=== PATIENT | female | born 1980 | race Caucasian/White ===

== ENCOUNTER → 2021-11-16 01:15 | Outpatient (CLI) | payer BC, SELFPAY ==
--- NOTE | 2021-11-16 | DI.MRI_ITS ---
Exam(s) MR LUMBAR SPINE WO EXAM: MR LUMBAR SPINE WO CLINICAL HISTORY: LUMBOSACRAL RADICULOPATHY,M54.17,H/O L4-5 MICRODISECTOMY. TECHNIQUE: Multiplanar multisequence MRI of the Lumbar spine was performed. COMPARISON: Prior outside MR LS SPINE W/WO CONTRAST from 05/13/2015 . plain films of 10/08/2021 rev iewed. There is sacralization of the L5 segment/transitional anatomy and rudimentary 12th ribs. FINDINGS: Five lumbar vertebrae are presumed. Conus medullaris is at normal level. There is no evidence of conus mass nor subjacent clumping of in trathecal nerve roots to suggest arachnoiditis. The distal thecal sac appears unremarkable.Again not ed are small bilateral Tarlov intra sacral cysts, unchanged. Bones:There are no fractures nor ominous osseous lesions in the lumbar vertebral bodies and visualize d sacrum. However, there are now Modic type 1 sub endplate marrow edema findings at L4-5. With respect to the individual levels... T12-L1: Unremarkable L1-2: Normal disc height and signal. No disc herniation nor central canal stenosis.No foraminal steno sis L2-3: Normal disc height. No disc herniation nor central canal stenosis.No foraminal stenosis.No face t arthropathy. L3-4: Normal disc height. No disc herniation or central canal stenosis.No foraminal stenosis.No face t arthropathy. L4-5: There is evidence of partial left laminectomy. There is Modic-type 1 sub endplate marrow edema changes on the right side of this disc space. There is mild asymmetric narrowing also of the right side of this disc space. There is some annular bulging which is predominantly central.. There is no large disc herniation. There is no neural spinal canal stenosis. Mild foraminal stenosis is noted on the right side, this related to some disc height loss. However this is only mild stenosis of the exiting right neural foramen.. There is no foraminal stenosis on the left side. No prominent facet arthropathy nor ligamentum flavum hypertrophy. L5-S1: Unremarkable Soft tissues: paraspinal soft tissues appear unremarkable. IMPRESSION: 1. L4-5 findings as described above, but without an obvious new prominent disc herniation. Also no c entral canal stenosis nor prominent foraminal stenosis at this level which has undergone prior surger y. There is mild foraminal stenosis on the right side at this level due to slight disc height loss o n the right side where there also Modic type 1 sub endplate marrow edema changes. There is no abnorm al fluid collection at this level. 2. Please note that this patient has transitional lumbar anatomy, including sacralization of the L5 s egment. Therefore if this patient is ever to be a surgical candidate then close review of the plain films and MRI together are recommended so as to avoid operating on the wrong level. DATA REPOSITORY:
== END ==
PROVIDERS: PCP Family Medicine; Visit Provider Physician Assistant
DX: M54.17 Radiculopathy, lumbosacral region (principal); Z98.890 Other specified postprocedural states; M51.87 Other intervertebral disc disorders, lumbosacral region
CPT/HCPCS: 72148

== ENCOUNTER 2022-10-12 09:47 | Emergency (ER) | payer OTHER, SELFPAY ==
[2022-10-12] VITALS (8 sets, daily range): BP systolic 117–133; BP diastolic 49–86; PULSE 80–103; RESP 14–20; TEMP 36.4; O2SAT 98–100
--- NOTE | 2022-10-12 09:52 | NUR.NOTE ---
epi pen administered upon time of arrival by staff
--- NOTE | 2022-10-12 10:01 | W.ED.GENAD ---
Discharge Plan Disposition Patient Disposition: Home Discharge Details Clinical Impression: Numbness of lip Primary Care Provider: Lucie Morel ED Provider: Contreras Rouse Home Meds and New Rx's Prescriptions: Continued dextroamphetamine-amphetamine [Adderall] 20 mg tablet 20 mg PO DAILY clonazepam 0.5 mg tablet 0.5 mg PO QHS Rx Instructions: administer 30 minutes before bedtime cyclobenzaprine 5 mg tablet 5 mg PO TID fluoxetine 20 mg capsule 20 mg PO DAILY fluticasone propionate 50 mcg/actuation spray,suspension 2 spray intranasal DAILY Rx Instructions: administer into each nostril folic acid 1 mg tablet 1 mg PO DAILY gabapentin 300 mg capsule 600 mg PO TID lamotrigine 100 mg tablet 200 mg PO DAILY meclizine 25 mg tablet 25 mg PO DAILY PRN methotrexate sodium 2.5 mg tablet 10 mg PO QWEEK fluoxetine [Prozac] 20 mg capsule 20 mg PO DAILY norgestimate-ethinyl estradiol [Lmc-Yc-Zgnyykyx] 0.18/0.215/0.25 mg-25 mcg tablet 1 tab PO DAILY Discharge Instructions Additional Instructions: You are seen in the emergency department for the numbness in your lips. You did not have any swelling nor signs of anaphylaxis. Please follow-up with your primary care provider to discuss possibility of testing for allergies with an pattern marking supervisor. Medical Decision Making This is an overall well-appearing normothermic and not tachycardic 42-year-old female with numbness to her cheeks lips and tongue but no signs of anaphylaxis based on no airway involvement, no changes in breathing, nor any hypotension no nausea nor vomiting. Patient received an EpiPen from triage. Given concern for possible allergic reaction to latex I was planning on dosing the patient with dexamethasone however she noted history of steroid-induced psychosis so we will defer this at this point time. She has had no nausea nor vomiting to suggest benefit from laboratory evaluation. No chest pain to suggest ACS. She has not had black nor bloody stools so we will defer CBC. No dysuria nor frequency to suggest benefit from urinalysis. We will observe the patient in the ED and reassess. 10:26 AM EUSEBIA Still reported that the patient's temperature was 97.6 ?F. Patient has had no progressive symptoms and denies any swelling in the back of her throat or in her lips. On reassessment her uvula was still visible and she had no symptoms. No swelling of her lips nor any wheezing. She had no hypoxia. I advised outpatient follow-up with her PMD to discuss possibility of assessment with an pattern marking supervisor to assess for allergies. I advised patient to return to the ED if she developed any shortness of breath difficulty breathing or swelling in the back for throat. HPI General Date/Time Provider Initiated Documentation: 10/12/22 10:01. HPI Narrative: This is a 42-year-old female arrived to the emergency department via private vehicle with concern for allergic reaction. Patient reports that at approximately 7 AM this morning she was blowing up latex balloons at work. She was concerned as she had tingling in her lips and cheeks. She took diphenhydramine. She reports that she has a prescription for an EpiPen but she has not filled this prescription. She said that she woke in usual state of health. She denies nausea vomiting or shortness of breath at the moment. She has a history of rheumatoid arthritis for which she takes methotrexate. She also takes dextroamphetamine for ADHD. She feels numbness in her lips cheeks and the roof of her mouth. She has not noticed any swelling in her cheeks nor in her mouth. She denies routine tobacco, she occasionally drinks ethanol, she denies illicits. She said no dysuria frequency nor any chest pain. Related Data Home Medications Medication Instructions Recorded Confirmed clonazepam 0.5 mg tablet 0.5 mg PO QHS 05/24/22 06/01/22 cyclobenzaprine 5 mg tablet 5 mg PO TID 05/24/22 06/01/22 dextroamphetamine-amphetamine 20 20 mg PO DAILY 05/24/22 06/01/22 mg tablet (Adderall) fluoxetine 20 mg capsule 20 mg PO DAILY 05/24/22 06/01/22 fluoxetine 20 mg capsule (Prozac) 20 mg PO DAILY 05/24/22 06/01/22 fluticasone propionate 50 2 spray intranasal DAILY 05/24/22 06/01/22 mcg/actuation nasal spray,suspension folic acid 1 mg tablet 1 mg PO DAILY 05/24/22 06/01/22 gabapentin 300 mg capsule 600 mg PO TID 05/24/22 06/01/22 lamotrigine 100 mg tablet 200 mg PO DAILY 05/24/22 06/01/22 meclizine 25 mg tablet 25 mg PO DAILY PRN 05/24/22 06/01/22 methotrexate sodium 2.5 mg tablet 10 mg PO QWEEK 05/24/22 06/01/22 norgestimate 0.18 mg/0.215 mg/0.25 1 tab PO DAILY 05/24/22 06/01/22 mg-ethinyl estradiol 25 mcg tablet ([id number]) Allergies Allergy/AdvReac Type Severity Reaction Status Date / Time insect venom Allergy Severe Anaphylaxis Unverified 06/01/22 11:04 General Stated Complaint: Allergic NEIDA: 3 PFSH All Active Problems (Updated 10/12/22 @ 10:26 by Contreras Rouse MD) Numbness of lip (Acute) Facial pressure (Acute) Medical History (Updated 10/12/22 @ 10:26 by Contreras Rouse MD) Allergic rhinitis Atopic dermatitis Back pain Bipolar disorder Chronic sinusitis Degeneration of lumbar intervertebral disc Depressive disorder Hemorrhoids Hypothyroidism Insomnia Intractable menstrual migraine Irritable bowel syndrome Migraine without aura Rheumatoid arthritis Sciatica Sleep disorder Undifferentiated spondyloarthropathy Surgical History (Updated 05/24/22 @ 15:25 by Abeba Rodgers RN) H/O colonoscopy H/O microdiscectomy History of adenoidectomy History of recent maxillofacial surgery History of surgery on arm Social History Smoking/Tobacco Use Status: Never Smoking risk assessment performed?: Yes Substance use type: does not use Do you feel safe at home: Yes Do you feel safe in your relationship?: Yes Exam Narrative Exam Narrative: General: Well-appearing in mild no significant or distress speaking in complete sentences. Head: Normocephalic, atraumatic. Eye: Pupils equal, round reactive to light. Extraocular eye movements intact. No conjunctival injection. No scleral icterus. Ear, nose, mouth, throat: Grossly normal inspection. Normal voice, handling secretions normally. No significant swelling in oropharynx. Uvula visible. No lip swelling. No stridor. Neck: Trachea midline. Cardiovascular: Well-perfused distal extremities. Regular rate and rhythm. Respiratory: Nonlabored respiration. Clear lungs bilaterally no wheezing. Gastrointestinal: Nondistended abdomen. Soft nontender. Musculoskeletal: No edema. Moving all 4 extremities spontaneously. Skin: Normal for age and race, grossly normal temperature and turgor. No acute rash. Neurologic: Alert and appropriate, no apparent acute deficits. Psychiatric: Mood and manner are appropriate. Grooming and personal hygiene are appropriate. Course Vital Signs Vital signs: Vital Signs Respiratory Rate 18 10/12/22 09:48 Pulse 91 H 10/12/22 09:51 Respiratory Rate 18 10/12/22 09:48 Respiratory Effort Normal, Non-Labored 10/12/22 09:51 Blood Pressure 133/86 10/12/22 09:51 Pulse Oximetry 100 10/12/22 09:51 Oxygen Delivery Method Room Air 10/12/22 09:51 Oxygen Flow Rate 0 10/12/22 09:51
== END 2022-10-12 10:50 | disposition home or self-care (01) ==
PROVIDERS: Emergency Provider Emergency Medicine; PCP Family Medicine
DX: R20.2 Paresthesia of skin (principal)
CPT/HCPCS: 99281; 99282